=== PATIENT | male | born 1995 | race Caucasian/White ===

== ENCOUNTER 2017-03-07 23:59 | Emergency (ER) | payer OTHER ==
[~2017-03-07] VITALS: Ht 180.3 cm; Wt 104.3 kg
--- NOTE | 2017-03-08 00:12 | ED UPPER/LOWER EXTREMITY COMPL ---
History of Present Illness General Chief Complaint: Laceration Procedure Stated Complaint: "PER PT LT ARM CUT W/KNIFE" Source: patient, family, old records Exam Limitations: no limitations Vital Signs & Intake/Output Vital Signs & Intake/Output Vital Signs Date Time Temp Pulse Resp B/P B/P Pulse O2 O2 Flow FiO2 Mean Ox Delivery Rate 03/08 0126 98.2 100 18 151/87 97 Room Air 03/08 0009 99.1 116 16 177/91 97 Room Air Allergies Coded Allergies: MDX - Risperidone (From RISPERDAL) (UNKNOWN 02/26/12) Triage Note: 21YO MALE TO TRIAGE W/CO LAC TO L FOREARM SP CUT BY KNIFE. NO LO ROM OR SENSATION OF R HAND Triage Nurses Notes Reviewed? yes Onset: Abrupt Duration: hour(s): (1), constant Timing: recent history Severity: mild, moderate Severity Numbers: 6 Pain/Injury Location: Left: Forearm. Method of Injury: laceration No Modifying Factors: none Associated Symptoms: none HPI: 21-year-old male presents status post sustaining laceration to his left forearm just prior to arrival when he cut it with a knife. He states he's had a few beers this evening and states the night slept. He denies any other injury. His of the [place]'s he now presents complaining mild to moderate aching pain over the forearm no numbness or tingling no decreased strength no difficulty with moving his hand wrist or fingers. He is not taken anything for symptoms and is declining anything when offered. (PAOLA RUDOLPH) Past History Travel History Traveled to [place] past 21 day No Medical History Any Pertinent Medical History? see below for history Psychiatric: bipolar disease, depression, SUICIDE IDEATION Surgical History Surgical History: non-contributory Psychosocial History Who do you live with Family What is your primary language Malawian Tobacco Use: Current Daily Use Daily Tobacco Use Amount/Type: => 5 Cigarettes daily ETOH Use: occasional use Family History Hx Contributory? No (PAOLA RUDOLPH) Review of Systems Review of Systems Constitutional: Reports: see HPI. All Other Systems: Reviewed and Negative Comments Review of systems: See HPI, All other systems negative. Constitutional, no chills no fever, no malaise HEENT: No visual changes no sore throat no congestion, Cardiovascular: No chest pain , no palpitation Skin: no rashes, no change in skin Respiratory: No dyspnea no cough no sputum GI: No nausea no vomiting, no diarrhea, Muscle skeletal: No joint pain, no joint swelling, no back pain, no neck pain, Neurologic: No numbness no headache Psych: No stress Heme/endocrine: No bruising Immunology: No lymphadenopathy (PAOLA RUDOLPH) Physical Exam Physical Exam General Appearance: well developed/nourished, no apparent distress, alert, awake Comments: Well-developed well-nourished patient in no apparent distress. HEENT: Atraumatic, extraocular motion intact Neck: Supple, FROM Back: FROM Respiratory: No respiratory distress. Patient speaking in full complete sentences. Breath sounds clear to auscultation bilaterally: NO W/R/R Shoulder: Atraumatic/Stable. FROM . Elbow: Atraumatic/stable. FROM. No laxity Upper arm/Forearm: There is a 5 cm superficial linear laceration noted to the left molar distal forearm, no exposed tendon or bone, no visualized or palpated foreign body Nontender. No edema, 5 out of 5 manager android strength noted to bilateral upper extremities Hand/Wrist: Atraumatic/stable. Skin intact. FROM Pulses: Normal/equal radial pulses bilaterally. Brisk cap refill Lower Extremities: Atraumatic full range of motion Neuro: awake, alert, and oriented to person, place and time. There were no obvious focal neurologic abnormalities. Skin: Warm & dry;No appreciable rash on exposed skin Psych: Mood affect normal, normal memory normal judgment. Diagram Left Arm Front 1) Laceration as described above (PAOLA RUDOLPH) Progress Differential Diagnosis: cellulitis, tendon injury Plan of Care: Current Medications Sig/Edin Start time Last Medication Dose Stop Time Status Admin Lidocaine 20 ML ONCE ONE 03/08 45 UNVr (Lidocaine 1%) 03/08 46 Wound was thoroughly irrigated with normal saline Betadine peroxide and anesthetized with lidocaine 1% 10 mL. The wound was thoroughly irrigated and discussed with him the possibility of 4 - on examination still exist. Sutures times 17 3-0 Placed by myself patient tolerated procedure well return precautions were discussed with patient. (PAOLA RUDOLPH) Departure Departure Disposition: HOME OR SELF CARE Condition: Stable Clinical Impression Primary Impression: Laceration Referrals: AGATA OROURKE,TIFFANY Calderón Additional Instructions: Keep area clean and covered as discussed, bacitracin daily. Return to ER in 7- 10 days for suture removal. Please understand that foreign bodies such as glass or wood may not be visible to the naked eye or on plain x-rays. If the wound becomes red, swollen, increasingly more painful or if there is any drainage from the wound, please have it reevaluated by a physician for the possibility of a retained foreign body. Departure Forms: Customer Survey General Discharge Information (PAOLA RUDOLPH) PA/CIRCUIT BREAKER MECHANIC Co-Sign Statement Statement: ED Attending supervision documentation- I saw and evaluated the patient. I have also reviewed all the pertinent lab results and diagnostic results. I agree with the findings and the plan of care as documented in the PA's/CIRCUIT BREAKER MECHANIC's documentation. x I have reviewed the ED Record and agree with the PA's/CIRCUIT BREAKER MECHANIC's documentation. [] Additions or exceptions (if any) to the PAs/CIRCUIT BREAKER MECHANIC's note and plan are summarized below: [] (DORY OROURKE,ROBERT) Procedures Laceration/Wound Repair Laceration/Wound Repair: Wound Location: upper extremity Wound's Depth, Shape: linear, superficial Wound Length (cm): 5 Wound Explored: clean, no foreign body removed, irrigated extensively Irrigated w/ Saline (ccs): 200 Betadine Prep? Yes Anesthesia: 1% lidocaine Volume Anesthetic (ccs): 10 Wound Repaired With: sutures Suture Size/Type: 3:0 Number of Sutures: 17 Layer Closure? No Sterile Dressing Applied: Yes Tetanus Status: up to date (PAOLA RUDOLPH)
[2017-03-08 01:26] VITALS: BP 151/87
== END 2017-03-08 01:26 ==
LOC: ERH 23:59
DX: S51.812A Laceration without foreign body of left forearm, initial encounter (principal); W26.0XXA Contact with knife, initial encounter; Y93.9 Activity, unspecified; Y92.9 Unspecified place or not applicable

== ENCOUNTER 2017-03-20 10:58 | Emergency (ER) | payer OTHER ==
[~2017-03-20] VITALS: Ht 172.7 cm; Wt 102.1 kg
--- NOTE | 2017-03-20 11:02 | ED ANIMAL BITE/WOUND CHECK ---
History of Present Illness General Chief Complaint: Suture Removal/Wound Recheck Stated Complaint: SUTURE REMOVAL Source: patient, old records Exam Limitations: no limitations Vital Signs & Intake/Output Vital Signs & Intake/Output ED Intake and Output 03/21 0000 03/20 1200 Intake Total Output Total Balance Patient 225 lb Weight Weight Reported by Patient Measurement Method Allergies Coded Allergies: MDX - Risperidone (From RISPERDAL) (UNKNOWN 02/26/12) Triage Nurses Notes Reviewed? yes Onset: Abrupt Duration: day(s): (), better Timing: remote history Injury Environment: home Is Injury an Animal Bite? No Severity: mild Severity Numbers: 1 No Modifying Factors: none Associated Symptoms: DENIES HPI: 21-year-old male presents for suture removal status post sustaining laceration 12 days ago for which she was seen here by myself. The patient denies any complications since the redness warmth discharge fever chills. He denies any numbness or tingling. No modifying factors or associated symptoms (PAOLA RUDOLPH) Past History Travel History Traveled to [place] past 21 day No Medical History Any Pertinent Medical History? see below for history Psychiatric: bipolar disease, depression, SUICIDE IDEATION Surgical History Surgical History: non-contributory Psychosocial History Who do you live with Family What is your primary language Kenyan Family History Hx Contributory? No (PAOLA RUDOLPH) Review of Systems Review of Systems Constitutional: Reports: see HPI. All Other Systems: Reviewed and Negative Comments Review of systems: See HPI, All other systems negative. Constitutional, no chills no fever, no malaise HEENT: no sore throat no congestion Cardiovascular: No chest pain , no palpitation Skin: no rashes, no change in skin Respiratory: No dyspnea no cough Muscle skeletal: No joint pain, n, no back pain, no neck pain, Neurologic: No numbness no headache Psych: No stress Heme/endocrine: No bruising Immunology: No lymphadenopathy (PAOLA RUDOLPH) Physical Exam Physical Exam General Appearance: well developed/nourished, no apparent distress, alert, awake Comments: Well-developed well-nourished patient in no apparent distress. HEENT: Atraumatic, extraocular motion intact Neck: Supple, FROM Back: FROM Respiratory: No respiratory distress. Patient speaking in full complete sentences. Breath sounds clear to auscultation bilaterally: NO W/R/R Extremities: full range of motion Neuro: awake, alert, and oriented to person, place and time. There were no obvious focal neurologic abnormalities. Skin: [address] to the left forearm, no surrounding erythema and induration fluctuance Warm & dry;No appreciable rash on exposed skin Psych: Mood affect normal, normal memory normal judgment. (PAOLA RUDOLPH) Progress Differential Diagnosis: abscess, cellulitis, joint infection Plan of Care: 17 sutures were removed by myself with no wound dehiscence. Patient tolerated procedure well discussed complaint care cleared for discharge (PAOLA RUDOLPH) Departure Departure Disposition: HOME OR SELF CARE Condition: Stable Clinical Impression Primary Impression: Visit for suture removal Referrals: PATIENT HAS NO PRIMARY CARE DR (PCP/Family) Additional Instructions: Follow-up with your primary care physician return to ER with any concerns or signs of infection Departure Forms: Customer Survey General Discharge Information (PAOLA RUDOLPH) PA/ODD TICKET CLERK Co-Sign Statement Statement: ED Attending supervision documentation- [] I saw and evaluated the patient. I have also reviewed all the pertinent lab results and diagnostic results. I agree with the findings and the plan of care as documented in the PA's/ODD TICKET CLERK's documentation. [X] I have reviewed the ED Record and agree with the PA's/ODD TICKET CLERK's documentation. [] Additions or exceptions (if any) to the PAs/ODD TICKET CLERK's note and plan are summarized below: [] (MARYSOL OROURKE,AGUSTÍN)
[2017-03-20 11:07] VITALS: BP 135/75
== END 2017-03-20 11:23 ==
LOC: ERH 10:58
DX: S51.812D Laceration without foreign body of left forearm, subsequent encounter (principal)
CPT/HCPCS: 99281